=== PATIENT | male | born 1945 | race Caucasian/White ===

== ENCOUNTER 2016-07-05 05:53 | Inpatient (IN) | payer MEDICARE, OTHER ==
[2016-07-02 12:25] LABS: HEMOGLOBIN 15.5 g/dL (13.7-18.0)
[2016-07-02 12:29] LABS: ASPARTATE AMINO TRANSFERASE 37 U/L (15-37); BLOOD UREA NITROGEN 11 mg/dL (7-18)
[2016-07-03 12:06] LABS: THYROGLOBULIN AB <1.0 IU/mL (0.0-0.9); THYROGLOBULIN QUANT 20.9 ng/mL (1.4-29.2)
[~2016-07-05] VITALS: Ht 185.4 cm; Wt 112.0 kg
[~2016-07-05 05:53] MED LIST: ALLO100T30 PO; AMOX1TAB12 PO; AMOX1TAB64 PO; Aspirin PO; CHOL400C PO; LEVO50TA PO; LOSA25TA5 PO; METO-93 PO; SIMV10TA3 PO
[2016-07-05] MEDS ORDERED: LACTATED RINGERS 1,000 ML IV SCH ×2 (06:23→07:16)
[2016-07-05 06:26] VITALS: BP 122/80
[2016-07-05] MEDS ORDERED: LIDOCAINE 1%, 2ML SQ PRN (06:30)
[2016-07-05] MEDS ORDERED: MIDAZOLAM 1 MG/ML, 2ML ONE (06:54)
[2016-07-05] MEDS ORDERED: FENTANYL PF 250 MCG/5ML ONE (06:54)
[2016-07-05] MEDS ORDERED: ACETAMINOPHEN 500 MG TABLET PO ONE (07:00)
[2016-07-05] MEDS ORDERED: GABAPENTIN 300 MG CAPSULE PO SCH (07:00)
[2016-07-05] MEDS ORDERED: HYDROmorphone 1 MG/ML, 1ML IV PRN ×2 (07:00→08:00)
[2016-07-05] MEDS ORDERED: ONDANSETRON 2MG/ML, 2ML IVPush PRN ×2 (07:00→08:00)
[2016-07-05] MEDS ORDERED: OXYcodone/APAP 5/325MG TABLET PO PRN (07:00)
[2016-07-05] MEDS ORDERED: EPINEPHRINE 1 MG/ML, 1ML ONE (07:15)
[2016-07-05] MEDS ORDERED: SUCCINYLCHOLINE 20 MG/ML, 10ML ONE (07:15)
[2016-07-05] MEDS ORDERED: ONDANSETRON 2MG/ML, 2ML ONE (07:15)
[2016-07-05] MEDS ORDERED: CEFAZOLIN 1,000 MG ONE (07:15)
[2016-07-05] MEDS ORDERED: DEXAMETHASONE 4 MG/ML, 1ML ONE (07:15)
[2016-07-05] MEDS ORDERED: PROPOFOL 10 MG/ML, 20ML ONE (07:15)
[2016-07-05] MEDS ORDERED: ROCURONIUM 10 MG/ML ONE (07:15)
[2016-07-05] MEDS ORDERED: GLYCOPYRROLATE 0.2MG/1ML ONE (07:15)
[2016-07-05] MEDS ORDERED: hydrALAzine 20 MG/ML, 1ML IV PRN (08:00)
[2016-07-05] MEDS ORDERED: FENTANYL PF 100 MCG/2ML IV PRN (08:00)
[2016-07-05] MEDS ORDERED: ACETAMINOPHEN 325 MG TABLET PO PRN (08:00)
[2016-07-05] MEDS ORDERED: LABETALOL 5MG/ML, 20ML IV PRN (08:00)
[2016-07-05] MEDS ORDERED: METOCLOPRAMIDE 5 MG/ML, 2ML IV PRN (08:00)
[2016-07-05] MEDS ORDERED: OXYcodone 5 MG/5 ML ORAL.SOL UDC PO PRN (08:00)
[2016-07-05] MEDS: D5%-0.45NACL+KCL 20MEQ 1,000 ML IV SCH ×2 (12:03→20:41)
[2016-07-05] MEDS: LOSARTAN 50MG TABLET PO SCH ×2 (12:37→20:43)
[2016-07-05 14:00] VITALS: BP 123/64
[2016-07-05 15:59] VITALS: BP 164/97
[2016-07-05 20:02] VITALS: BP 126/66
[2016-07-05] MEDS: ALLOPURINOL 100 MG TABLET PO SCH (20:43)
[2016-07-05] MEDS: METOPROLOL SUCCINATE 50 MG TAB.ER.24H PO SCH (20:43)
[2016-07-05] MEDS ORDERED: SIMVASTATIN 10 MG TABLET PO SCH (21:00)
[2016-07-06 03:23] VITALS: BP 138/72
[2016-07-06] MEDS: D5%-0.45NACL+KCL 20MEQ 1,000 ML IV SCH ×2 (04:30→10:48)
[2016-07-06] MEDS ORDERED: LEVOTHYROXINE 125 MCG TABLET PO SCH (06:00)
[2016-07-06 06:57] VITALS: BP 121/69
[2016-07-06] MEDS: CALCIUM CARBONATE 500 MG TAB.CHEW PO SCH ×2 (08:10→10:46)
[2016-07-06] MEDS: LOSARTAN 50MG TABLET PO SCH (08:59)
[2016-07-06] MEDS: METOPROLOL SUCCINATE 50 MG TAB.ER.24H PO SCH (08:59)
[2016-07-06] MEDS: ALLOPURINOL 100 MG TABLET PO SCH (08:59)
[2016-07-06] MEDS ORDERED: CALC300T5 PO (12:53)
[2016-07-06 13:35] VITALS: BP 135/74
[2016-07-06] MEDS ORDERED: LEVO125T PO (15:53)
[2016-07-06] MEDS ORDERED: OXYC-302 PO (15:54)
== END 2016-07-06 16:13 | disposition home or self-care (01) | DRG 627 ==
LOC: OUT 05:53 → ORIP 06:50 → 4NOR 10:27 → DCLOUNGE 07-06 15:45
PROVIDERS: ADMIT Surgery; ATTEND Surgery
PROC: 4A11X4G Monitoring of Peripheral Nervous Electrical Activity, Intraoperative, External Approach (ICD-10-PCS; 2016-07-05)
PROC: 0GTK0ZZ Resection of Thyroid Gland, Open Approach (ICD-10-PCS; principal; 2016-07-05 07:30)
DX: E04.2 Nontoxic multinodular goiter (principal); I10 Essential (primary) hypertension; E78.00 Pure hypercholesterolemia, unspecified; Z90.49 Acquired absence of other specified parts of digestive tract; Z91.041 Radiographic dye allergy status; Z82.61 Family history of arthritis; Z82.49 Family history of ischemic heart disease and other diseases of the circulatory system
CPT/HCPCS: 36415; 80053; 82040; 82310; 84432; 85025; 86800; 88307; 88331; 88333; J0171; J0690; J1100; J2250; J2405; J2704; J3010; J3490; C1760; J0330; J3480; J7120

== ENCOUNTER 2019-05-02 12:57 | Inpatient (IN) | payer MEDICARE, OTHER ==
[~2019-05-02] VITALS: Ht 188 cm; Wt 105.9 kg
[~2019-05-02 12:57] MED LIST changes: +CALC300T5 PO; +LEVO125T PO; +LOSA25TA25 PO; -LOSA25TA5 PO; +OXYC-302 PO; +SIMV10TA18 PO; -SIMV10TA3 PO
--- NOTE | 2019-05-02 13:40 | NUR ---
PT HAS WORSENING COUGH, DIAPHORESIS AND LIGHTHEADED INCREASING OVER LAST 5 TO 7 DAYS
[2019-05-02] MEDS ORDERED: SODIUM CHLORIDE FLUSH 10ML SYR IVF ONE (14:00)
[2019-05-02] MEDS ORDERED: SODIUM CHLORIDE 0.9% 1,000ML IVBOLUS ONE ×2 (14:00→14:30)
[2019-05-02 14:20] LABS: INTERNATIONAL NORMALIZED RATIO 1.06 (0.93-1.1); PROTHROMBIN TIME 11.2 Seconds (9.6-11.5)
[2019-05-02 14:22] LABS: ANION GAP 8 mmol/L (5-15); CALCIUM 8.2 mg/dL (8.5-10.1); CHLORIDE 102 mmol/L (98-107); CREATININE 1.42 mg/dL (0.7-1.3)
[2019-05-02 14:23] LABS: ALANINE AMINOTRANSFERASE 72 U/L (12-78); ALBUMIN 2.8 g/dL (3.4-5.0)
[2019-05-02 14:25] LABS: ALKALINE PHOSPHATASE 77 U/L (45-117); BILIRUBIN,TOTAL 1.1 mg/dL (0.2-1.0); TOTAL PROTEIN 6.8 g/dL (6.4-8.2)
[2019-05-02] MEDS ORDERED: CEFTRIAXONE PMX 2GM/50ML 50 ML IV ONE (14:30)
--- NOTE | 2019-05-02 14:31 | NUR ---
MD AT BEDSIDE DISCUSSING RESULTS AND INTENTION TO ADMIT
[2019-05-02] MEDS ORDERED: CEFTRIAXONE PMX 2GM/50ML 50 ML ONE (14:50)
[2019-05-02 15:08] LABS: MD SCAN; MEAN CORPUSCULAR HEMOGLOBIN 33.5 pg (27.5-34.5); MEAN CORPUSCULAR HGB CONC 34.3 g/dL (33.2-36.2); MEAN CORPUSCULAR VOLUME 97.6 fL (81-97); MEAN PLATELET VOLUME 7.9 fL (7.4-10.4); PLATELET COUNT 120 x10^3/uL (130-400); RED BLOOD COUNT 3.47 x10^6/uL (4.38-5.82); RED CELL DISTRIBUTION WIDTH 13.3 % (9.4-14.8)
[2019-05-02 15:14] LABS: BASOPHILS # (AUTO) 0.01 x10^3/uL (0-0.1); BASOPHILS % (AUTO) 1 % (0-1); EOSINOPHILS % (AUTO) 0 % (1-7); LYMPHOCYTES # (AUTO) 0.42 x10^3/uL (1-3.4); LYMPHOCYTES % (AUTO) 31 % (22-44); MONOCYTES # (AUTO) 0.01 x10^3/uL (0.2-0.8); MONOCYTES % (AUTO) 0 % (2-9); NEUTROPHILS # (AUTO) 0.92 x10^3/uL (1.8-6.8); NEUTROPHILS % (AUTO) 68 % (42-75)
[2019-05-02] MEDS ORDERED: AZITHROMYCIN 500 MG in SODIUM CHLORIDE 0.9% 250 ML IV ONE (15:30)
[2019-05-02] MEDS ORDERED: LEVO175T2 PO (15:54)
--- NOTE | 2019-05-02 15:54 | NUR ---
IV BOLUSES AND ANTIBITIOTICS CONTINUE TO INFUSE NOTED ON JUN. CONTINUE TO MONITOR
--- NOTE | 2019-05-02 16:47 | NUR ---
PT'S SPOUSE APPROACHED THIS RN IN THE HALLWAY STATING, "MY IS GETTING DELIRIOUS." PT A&O X 4, GCS 15, PERRL. PT DOES STATE, "I'VE HAD A COUPLE OF ANIMALS IN HERE TALKING TO ME. A COUPLE OF CATS, A DOG." DR. CULP MADE AWARE. PT'S VSS, NO OTHER NEUROLOGIC DEFICITS APPRECIATED UPON EXAM.
--- NOTE | 2019-05-02 16:49 | NUR ---
HOSPITALIST AT BEDSIDE EXAMINING PT
[2019-05-02] MEDS ORDERED: BISACODYL 10 MG SUPP PR PRN (17:00)
[2019-05-02] MEDS ORDERED: morphine SULFATE 10 MG/ML, 1ML IVPush PRN (17:00)
[2019-05-02] MEDS ORDERED: PROMETHAZINE 25 MG/ML, 1ML IM PRN (17:00)
[2019-05-02] MEDS ORDERED: ONDANSETRON ODT 4 MG PO PRN (17:00)
[2019-05-02] MEDS ORDERED: ONDANSETRON 2MG/ML, 2ML IVPush PRN (17:00)
[2019-05-02] MEDS ORDERED: hydrALAzine 20 MG/ML, 1ML IVPush PRN (17:00)
[2019-05-02] MEDS ORDERED: POLYETHYLENE GLYCOL 17 GM PACKET PO PRN (17:00)
[2019-05-02] MEDS ORDERED: OXYcodone IR 5MG TABLET PO PRN (17:00)
[2019-05-02] MEDS ORDERED: DOCUSATE 100 MG CAPSULE PO PRN (17:00)
[2019-05-02 17:30] LABS: FREE T4 (FREE THYROXINE) 1.16 ng/dL (0.76-1.46)
--- NOTE | 2019-05-02 17:43 | NUR ---
BLADDER SCAN 471 ML. HOSPITALIST MADE AWARE. PT UP TO BED AND USED RESTROOM. PT NOW SITTING IN CHAIR EATING DINNER
[2019-05-02] MEDS ORDERED: ACETAMINOPHEN 325 MG TABLET ONE (18:22)
[2019-05-02] MEDS: ACETAMINOPHEN 325 MG TABLET PO PRN ×2 (18:26→21:42)
[2019-05-02] MEDS ORDERED: HEPARIN 5,000 UNITS/ML, 1ML ONE (18:30)
--- NOTE | 2019-05-02 18:30 | NUR ---
MEDICATED FOR FEVER AND BLANKETS AND JACKET REMOVED. CONTINUE TO MONITOR
[2019-05-02] MEDS: HEPARIN 5,000 UNITS/ML, 1ML SQ SCH (18:32)
[2019-05-02] MEDS: SODIUM CHLORIDE 0.9% 1,000 ML IV SCH (18:32)
--- NOTE | 2019-05-02 19:11 | NUR ---
REPORT FROM LIBIA GUERRERO. ASSUMING CARE OF PT AT THIS TIME
--- NOTE | 2019-05-02 20:06 | NUR ---
REPORT TO FLOOR RN PT READY FOR TRANSPORT
[2019-05-02 20:27] VITALS: BP 122/68
[2019-05-02] MEDS: GUAIFENESIN ER 600 MG TABLET PO SCH (21:42)
[2019-05-02] MEDS: SIMVASTATIN 10 MG TABLET PO SCH (21:42)
[2019-05-02] MEDS ORDERED: ALBUTEROL/IPRATROPIUM 2.5MG/0.5MG, 3 ML NPPB PRN (23:30)
[2019-05-03] MEDS: HEPARIN 5,000 UNITS/ML, 1ML SQ SCH ×3 (01:00→17:00)
[2019-05-03 01:41] VITALS: BP 117/66
[2019-05-03] MEDS: SODIUM CHLORIDE 0.9% 1,000 ML IV SCH (04:48)
[2019-05-03 05:20] LABS: CHLORIDE 106 mmol/L (98-107); MEAN CORPUSCULAR HEMOGLOBIN 33.5 pg (27.5-34.5); MEAN CORPUSCULAR VOLUME 98.6 fL (81-97); MEAN PLATELET VOLUME 7.9 fL (7.4-10.4); PLATELET COUNT 110 x10^3/uL (130-400); RED BLOOD COUNT 3.37 x10^6/uL (4.38-5.82); RED CELL DISTRIBUTION WIDTH 13.6 % (9.4-14.8)
[2019-05-03 05:27] LABS: ALANINE AMINOTRANSFERASE 84 U/L (12-78); ALBUMIN 2.5 g/dL (3.4-5.0); ALKALINE PHOSPHATASE 76 U/L (45-117); ANION GAP 5 mmol/L (5-15); BILIRUBIN,TOTAL 0.8 mg/dL (0.2-1.0); CALCIUM 7.6 mg/dL (8.5-10.1); CHOL/HDL RATIO 7.7; CHOLESTEROL, TOTAL 108 mg/dL (140-239); CREATININE 1.09 mg/dL (0.7-1.3); HDL CHOL % 13 % (26-37); HDL CHOLESTEROL (DIRECT) 14 mg/dL (40-60); LDL CHOLESTEROL,CALCULATED 69 mg/dL (54-169); LDL/HDL RATIO 4.9 (0.5-3.0); TOTAL PROTEIN 6.4 g/dL (6.4-8.2); TRIGLYCERIDES 126 mg/dL (50-200); VLDL CHOLESTEROL 25 mg/dL (0-25)
[2019-05-03 05:37] LABS: MD YES
[2019-05-03 05:45] LABS: <PLATELET ESTIMATE> DECREASED; <PLT MORPHOLOGY> NORMAL PLT MORPH; <RBC MORPHOLOGY> NORMAL; LYMPHS% (MANUAL) 42 % (22-44); MONOS#(MANUAL) 0.02 x10^3/uL (0.3-2.7); MONOS% (MANUAL) 2 % (2-9); SEG#(MANUAL) 0.67 x10^3/uL (1.8-6.8); SEGS% (MANUAL) 56 % (42-75)
[2019-05-03] MEDS: LEVOTHYROXINE 175 MCG TABLET PO SCH (06:12)
[2019-05-03 07:18] VITALS: BP 124/68
[2019-05-03] MEDS: ACETAMINOPHEN 325 MG TABLET PO PRN ×2 (07:27→15:54)
[2019-05-03] MEDS: CHOLECALCIFEROL 400 UNITS TABLET PO SCH (09:17)
[2019-05-03] MEDS: GUAIFENESIN ER 600 MG TABLET PO SCH ×2 (09:17→21:58)
[2019-05-03] MEDS: ALLOPURINOL 100 MG TABLET PO SCH (09:18)
[2019-05-03] MEDS: METOPROLOL SUCCINATE 50 MG TAB.ER.24H PO SCH (09:18)
[2019-05-03 13:40] VITALS: BP 152/75
[2019-05-03 13:56] LABS: MICROSCOPIC INDICATED
[2019-05-03] MEDS ORDERED: CEFTRIAXONE PMX 2GM/50ML 50 ML IV SCH (14:00)
[2019-05-03 14:04] LABS: CULTURE INDICATED? NO
[2019-05-03] MEDS: AZITHROMYCIN 500 MG in SODIUM CHLORIDE 0.9% 250 ML IV SCH (15:27)
[2019-05-03] MEDS ORDERED: NS + 20MEQ KCL 1,000 ML IV SCH (17:00)
[2019-05-03 18:36] VITALS: BP 117/63
[2019-05-03] MEDS: SIMVASTATIN 10 MG TABLET PO SCH (21:57)
[2019-05-04 00:35] VITALS: BP 144/72
[2019-05-04] MEDS: HEPARIN 5,000 UNITS/ML, 1ML SQ SCH ×3 (01:00→17:10)
[2019-05-04 01:31] LABS: PH, VENOUS 7.428 pH (7.320-7.420)
[2019-05-04 01:32] LABS: MEAN CORPUSCULAR HEMOGLOBIN 33.3 pg (27.5-34.5); MEAN CORPUSCULAR VOLUME 97.8 fL (81-97); MEAN PLATELET VOLUME 7.8 fL (7.4-10.4); PLATELET COUNT 118 x10^3/uL (130-400); RED BLOOD COUNT 3.22 x10^6/uL (4.38-5.82); RED CELL DISTRIBUTION WIDTH 13.9 % (9.4-14.8)
[2019-05-04 01:44] LABS: MD YES
[2019-05-04 01:45] LABS: ALANINE AMINOTRANSFERASE 142 U/L (12-78); ALBUMIN 2.2 g/dL (3.4-5.0); ANION GAP 5 mmol/L (5-15); CALCIUM 7.8 mg/dL (8.5-10.1); CHLORIDE 106 mmol/L (98-107); CREATININE 1.09 mg/dL (0.7-1.3)
[2019-05-04 01:47] LABS: ALKALINE PHOSPHATASE 98 U/L (45-117); BILIRUBIN,TOTAL 0.6 mg/dL (0.2-1.0); TOTAL PROTEIN 6.4 g/dL (6.4-8.2)
[2019-05-04 01:49] LABS: TROPONIN I 0.051 ng/mL (0.000-0.045)
[2019-05-04 01:52] LABS: BAND#(MANUAL) 0.02 x10^3/uL; BANDS%(MANUAL) 2 % (0-7); BASOS#(MANUAL) 0.01 x10^3/uL (0-0.1); BASOS% (MANUAL) 1 % (0-1); LYMPH#(MANUAL) 0.36 x10^3/uL (1-3.4); LYMPHS% (MANUAL) 36 % (22-44); REACTIVE LYMPHS # (MANUAL) 0.04 x10^3/uL (0-0); REACTIVE LYMPHS % (MANUAL) 4 % (0-0); SEG#(MANUAL) 0.57 x10^3/uL (1.8-6.8); SEGS% (MANUAL) 57 % (42-75)
[2019-05-04 01:53] LABS: <PLATELET ESTIMATE> DECREASED; <PLT MORPHOLOGY> NORMAL PLT MORPH; ANISOCYTOSIS 1+
[2019-05-04] MEDS ORDERED: FUROSEMIDE 40 MG/4 ML IV ONE (04:30)
[2019-05-04 06:21] VITALS: BP 117/60
[2019-05-04] MEDS: LEVOTHYROXINE 175 MCG TABLET PO SCH (06:25)
[2019-05-04] MEDS: GUAIFENESIN 200 MG TABLET PO SCH ×4 (08:41→21:38)
[2019-05-04] MEDS: CHOLECALCIFEROL 400 UNITS TABLET PO SCH (08:41)
[2019-05-04] MEDS: ALLOPURINOL 100 MG TABLET PO SCH (08:41)
[2019-05-04] MEDS: METOPROLOL SUCCINATE 50 MG TAB.ER.24H PO SCH (08:42)
[2019-05-04] MEDS: AMPICILLIN/SULBACTAM 3 GM in SODIUM CHLORIDE 0.9% 100 ML IV SCH ×3 (08:42→19:31)
[2019-05-04] MEDS: AZITHROMYCIN 500 MG in SODIUM CHLORIDE 0.9% 250 ML IV SCH (14:28)
[2019-05-04 14:50] LABS: TROPONIN I 0.022 ng/mL (0.000-0.045)
[2019-05-04 16:08] VITALS: BP 126/73
[2019-05-04 19:46] VITALS: BP 132/72
[2019-05-04] MEDS ORDERED: ACETAMINOPHEN 325 MG TABLET PO PRN (21:00)
[2019-05-04] MEDS: SIMVASTATIN 10 MG TABLET PO SCH (21:38)
[2019-05-04 22:16] LABS: RAPID INFLUENZA A Negative (Negative); RAPID INFLUENZA B Negative (Negative)
[2019-05-05] VITALS (7 sets, daily range): BP systolic 104–137; BP diastolic 69–83
[2019-05-05] MEDS: HEPARIN 5,000 UNITS/ML, 1ML SQ SCH ×2 (01:27→07:44)
[2019-05-05] MEDS: AMPICILLIN/SULBACTAM 3 GM in SODIUM CHLORIDE 0.9% 100 ML IV SCH ×2 (01:28→07:42)
[2019-05-05] MEDS: GUAIFENESIN 200 MG TABLET PO SCH ×4 (05:27→20:32)
[2019-05-05] MEDS: LEVOTHYROXINE 175 MCG TABLET PO SCH (05:27)
[2019-05-05 06:38] LABS: ALANINE AMINOTRANSFERASE 288 U/L (12-78); ALBUMIN 2.1 g/dL (3.4-5.0); ANION GAP 7 mmol/L (5-15); CALCIUM 7.9 mg/dL (8.5-10.1); CHLORIDE 105 mmol/L (98-107); CREATININE 0.92 mg/dL (0.7-1.3)
[2019-05-05 06:40] LABS: ALKALINE PHOSPHATASE 132 U/L (45-117); BILIRUBIN,TOTAL 0.7 mg/dL (0.2-1.0); TOTAL PROTEIN 6.3 g/dL (6.4-8.2)
[2019-05-05 06:44] LABS: MEAN CORPUSCULAR HEMOGLOBIN 33.5 pg (27.5-34.5); MEAN CORPUSCULAR VOLUME 98.7 fL (81-97); MEAN PLATELET VOLUME 8.2 fL (7.4-10.4); PLATELET COUNT 145 x10^3/uL (130-400); RED BLOOD COUNT 3.24 x10^6/uL (4.38-5.82); RED CELL DISTRIBUTION WIDTH 13.7 % (9.4-14.8)
[2019-05-05] MEDS: CHOLECALCIFEROL 400 UNITS TABLET PO SCH (07:42)
[2019-05-05] MEDS: ALLOPURINOL 100 MG TABLET PO SCH (07:42)
[2019-05-05] MEDS: METOPROLOL SUCCINATE 50 MG TAB.ER.24H PO SCH (07:42)
[2019-05-05 08:12] LABS: MD YES
[2019-05-05 08:19] LABS: BAND#(MANUAL) 0.05 x10^3/uL; BANDS%(MANUAL) 4 % (0-7); EOS#(MANUAL) 0.04 x10^3/uL (0.0-0.4); EOS% (MANUAL) 3 % (1-7); LYMPH#(MANUAL) 0.49 x10^3/uL (1-3.4); LYMPHS% (MANUAL) 41 % (22-44); MONOS#(MANUAL) 0.04 x10^3/uL (0.3-2.7); MONOS% (MANUAL) 3 % (2-9); NRBC % (MANUAL) 1 % (0-1); SEG#(MANUAL) 0.59 x10^3/uL (1.8-6.8); SEGS% (MANUAL) 49 % (42-75)
[2019-05-05 08:20] LABS: <PLATELET ESTIMATE> ADEQUATE; <PLT MORPHOLOGY> NORMAL PLT MORPH; <RBC MORPHOLOGY> NORMAL
[2019-05-05 09:25] LABS: TROPONIN I < 0.015 ng/mL (0.000-0.045)
[2019-05-05] MEDS ORDERED: DILTIAZEM 125 MG in SODIUM CHLORIDE 0.9% 100 ML IV PRN (10:00)
[2019-05-05] MEDS ORDERED: DILTIAZEM 5 MG/ML, 5ML ONE (10:11)
[2019-05-05] MEDS ORDERED: DILTIAZEM 5 MG/ML, 5ML IVPush ONE (10:30)
[2019-05-05] MEDS ORDERED: PIPERACILLIN/TAZO/PMX 3.375GM 50 ML IV SCH (10:30)
[2019-05-05] MEDS ORDERED: AZITHROMYCIN 500 MG in SODIUM CHLORIDE 0.9% 250 ML IV SCH ×2 (11:00→13:00)
[2019-05-05] MEDS ORDERED: HEPARIN 5,000 UNITS/ML, 1ML IV ONE (11:30)
[2019-05-05] MEDS ORDERED: DIGOXIN 0.25 MG/ML, 2ML IVPush ONE (12:30)
[2019-05-05] MEDS: HEPARIN 25,000 UNITS/250ML PMX 250 ML IV PRN (13:01)
[2019-05-05] MEDS ORDERED: IMMUNE GLOBULIN IV ONE (15:00)
[2019-05-05] MEDS ORDERED: HYDROCORTISONE 100 MG INJ. IVPush ONE (15:00)
[2019-05-05] MEDS: PIPERACILLIN/TAZO/PMX 4.5GM 100 ML IV SCH (16:50)
[2019-05-05] MEDS: METOPROLOL TARTRATE 25 MG TABLET PO SCH ×3 (17:32→21:00)
[2019-05-05] MEDS: HEPARIN 5,000 UNITS/ML, 1ML IV PRN (20:31)
[2019-05-06] MEDS: PIPERACILLIN/TAZO/PMX 4.5GM 100 ML IV SCH ×4 (01:10→18:42)
[2019-05-06 02:05] VITALS: BP 134/77
[2019-05-06] MEDS: HEPARIN 5,000 UNITS/ML, 1ML IV PRN ×4 (03:44→21:56)
[2019-05-06 05:26] VITALS: BP 156/81
[2019-05-06] MEDS: METOPROLOL TARTRATE 25 MG TABLET PO SCH ×4 (05:28→20:48)
[2019-05-06] MEDS: GUAIFENESIN 200 MG TABLET PO SCH ×4 (05:29→20:46)
[2019-05-06] MEDS: LEVOTHYROXINE 175 MCG TABLET PO SCH (05:29)
[2019-05-06] MEDS: HEPARIN 25,000 UNITS/250ML PMX 250 ML IV PRN ×2 (06:39→21:58)
[2019-05-06 07:46] VITALS: BP 128/80
[2019-05-06 08:03] LABS: ALANINE AMINOTRANSFERASE 409 U/L (12-78); ANION GAP 7 mmol/L (5-15); CALCIUM 8.1 mg/dL (8.5-10.1); CHLORIDE 105 mmol/L (98-107); CREATININE 1.03 mg/dL (0.7-1.3)
[2019-05-06 08:05] LABS: ALKALINE PHOSPHATASE 156 U/L (45-117); BILIRUBIN,TOTAL 0.6 mg/dL (0.2-1.0); TOTAL PROTEIN 7.1 g/dL (6.4-8.2)
[2019-05-06] MEDS: ALLOPURINOL 100 MG TABLET PO SCH (08:21)
[2019-05-06] MEDS: CHOLECALCIFEROL 400 UNITS TABLET PO SCH (08:21)
[2019-05-06 08:56] LABS: MEAN CORPUSCULAR HEMOGLOBIN 33.5 pg (27.5-34.5); MEAN CORPUSCULAR HGB CONC 33.4 g/dL (33.2-36.2); MEAN CORPUSCULAR VOLUME 100.6 fL (81-97); MEAN PLATELET VOLUME 8.7 fL (7.4-10.4); PLATELET COUNT 147 x10^3/uL (130-400); RED BLOOD COUNT 3.11 x10^6/uL (4.38-5.82); RED CELL DISTRIBUTION WIDTH 13.8 % (9.4-14.8)
[2019-05-06 09:09] LABS: MD YES
[2019-05-06 09:14] LABS: EOS#(MANUAL) 0.02 x10^3/uL (0.0-0.4); EOS% (MANUAL) 2 % (1-7); LYMPH#(MANUAL) 0.22 x10^3/uL (1-3.4); LYMPHS% (MANUAL) 24 % (22-44); MONOS#(MANUAL) 0.03 x10^3/uL (0.3-2.7); MONOS% (MANUAL) 3 % (2-9); SEG#(MANUAL) 0.64 x10^3/uL (1.8-6.8); SEGS% (MANUAL) 71 % (42-75)
[2019-05-06 09:15] LABS: <PLATELET ESTIMATE> ADEQUATE; <PLT MORPHOLOGY> NORMAL PLT MORPH
[2019-05-06] MEDS ORDERED: DILTIAZEM 125 MG in SODIUM CHLORIDE 0.9% 100 ML IV PRN (10:00)
[2019-05-06 12:46] VITALS: BP 131/76
[2019-05-06 20:14] VITALS: BP 123/70
[2019-05-07] VITALS (7 sets, daily range): BP systolic 111–157; BP diastolic 63–89
[2019-05-07] MEDS: PIPERACILLIN/TAZO/PMX 4.5GM 100 ML IV SCH ×4 (01:21→19:38)
[2019-05-07 04:28] LABS: MEAN CORPUSCULAR HEMOGLOBIN 33.3 pg (27.5-34.5); MEAN CORPUSCULAR HGB CONC 33.7 g/dL (33.2-36.2); MEAN CORPUSCULAR VOLUME 98.8 fL (81-97); MEAN PLATELET VOLUME 8.3 fL (7.4-10.4); PLATELET COUNT 196 x10^3/uL (130-400); RED BLOOD COUNT 3.22 x10^6/uL (4.38-5.82); RED CELL DISTRIBUTION WIDTH 13.7 % (9.4-14.8)
[2019-05-07 04:30] LABS: ALANINE AMINOTRANSFERASE 395 U/L (12-78); ALBUMIN 1.9 g/dL (3.4-5.0); ANION GAP 6 mmol/L (5-15); CALCIUM 7.9 mg/dL (8.5-10.1); CHLORIDE 106 mmol/L (98-107); CREATININE 0.96 mg/dL (0.7-1.3)
[2019-05-07 04:32] LABS: ALKALINE PHOSPHATASE 140 U/L (45-117); BILIRUBIN,TOTAL 0.6 mg/dL (0.2-1.0); TOTAL PROTEIN 6.6 g/dL (6.4-8.2)
[2019-05-07 05:07] LABS: MD YES
[2019-05-07 05:13] LABS: <PLATELET ESTIMATE> ADEQUATE; <PLT MORPHOLOGY> NORMAL PLT MORPH; <RBC MORPHOLOGY> NORMAL; EOS#(MANUAL) 0.01 x10^3/uL (0.0-0.4); EOS% (MANUAL) 1 % (1-7); LYMPH#(MANUAL) 0.69 x10^3/uL (1-3.4); LYMPHS% (MANUAL) 53 % (22-44); SEGS% (MANUAL) 46 % (42-75)
[2019-05-07] MEDS: HEPARIN 5,000 UNITS/ML, 1ML IV PRN ×2 (05:17→17:41)
[2019-05-07] MEDS: GUAIFENESIN 200 MG TABLET PO SCH ×4 (05:51→19:50)
[2019-05-07] MEDS: LEVOTHYROXINE 175 MCG TABLET PO SCH (05:51)
[2019-05-07] MEDS: METOPROLOL TARTRATE 25 MG TABLET PO SCH ×4 (05:52→19:51)
[2019-05-07] MEDS: ALLOPURINOL 100 MG TABLET PO SCH (08:00)
[2019-05-07] MEDS: CHOLECALCIFEROL 400 UNITS TABLET PO SCH (08:00)
[2019-05-07] MEDS ORDERED: FENTANYL PF 100 MCG/2ML ONE (14:58)
[2019-05-07] MEDS ORDERED: NALOXONE 1 MG/ML, 2ML ONE (14:58)
[2019-05-07] MEDS ORDERED: MIDAZOLAM 1 MG/ML, 5ML ONE ×2 (14:58)
[2019-05-07] MEDS ORDERED: FLUMAZENIL 0.1 MG/1 ML, 5ML ONE (14:58)
[2019-05-07 16:29] LABS: SALICYLATE LEVEL < 1.7 mg/dL (2.8-20.0)
[2019-05-07] MEDS: HEPARIN 25,000 UNITS/250ML PMX 250 ML IV PRN (19:43)
[2019-05-08] MEDS: HEPARIN 5,000 UNITS/ML, 1ML IV PRN ×2 (00:09→06:29)
[2019-05-08] MEDS: PIPERACILLIN/TAZO/PMX 4.5GM 100 ML IV SCH ×4 (01:22→20:39)
[2019-05-08 02:17] VITALS: BP 148/73
[2019-05-08 05:47] VITALS: BP 140/73
[2019-05-08] MEDS: GUAIFENESIN 200 MG TABLET PO SCH ×4 (05:49→20:40)
[2019-05-08] MEDS: LEVOTHYROXINE 175 MCG TABLET PO SCH (05:50)
[2019-05-08] MEDS: METOPROLOL TARTRATE 25 MG TABLET PO SCH (05:50)
[2019-05-08 06:17] LABS: MEAN CORPUSCULAR HEMOGLOBIN 33.1 pg (27.5-34.5); MEAN CORPUSCULAR HGB CONC 33.9 g/dL (33.2-36.2); MEAN CORPUSCULAR VOLUME 97.6 fL (81-97); MEAN PLATELET VOLUME 7.6 fL (7.4-10.4); PLATELET COUNT 182 x10^3/uL (130-400); RED CELL DISTRIBUTION WIDTH 13.7 % (9.4-14.8)
[2019-05-08 06:20] LABS: MD YES
[2019-05-08 06:23] LABS: ALANINE AMINOTRANSFERASE 256 U/L (12-78); ANION GAP 7 mmol/L (5-15); CALCIUM 7.6 mg/dL (8.5-10.1); CHLORIDE 105 mmol/L (98-107); CREATININE 0.93 mg/dL (0.7-1.3)
[2019-05-08 06:27] LABS: ALKALINE PHOSPHATASE 134 U/L (45-117); BAND#(MANUAL) 0.03 x10^3/uL; BANDS%(MANUAL) 3 % (0-7); BILIRUBIN,TOTAL 0.6 mg/dL (0.2-1.0); EOS#(MANUAL) 0.01 x10^3/uL (0.0-0.4); EOS% (MANUAL) 1 % (1-7); LYMPH#(MANUAL) 0.58 x10^3/uL (1-3.4); LYMPHS% (MANUAL) 53 % (22-44); MONOS#(MANUAL) 0.02 x10^3/uL (0.3-2.7); MONOS% (MANUAL) 2 % (2-9); SEG#(MANUAL) 0.45 x10^3/uL (1.8-6.8); SEGS% (MANUAL) 41 % (42-75); TOTAL PROTEIN 6.5 g/dL (6.4-8.2)
[2019-05-08 06:28] LABS: <PLATELET ESTIMATE> ADEQUATE; <PLT MORPHOLOGY> NORMAL PLT MORPH; <RBC MORPHOLOGY> NORMAL
[2019-05-08 07:28] VITALS: BP 157/88
[2019-05-08] MEDS: HEPARIN 25,000 UNITS/250ML PMX 250 ML IV PRN (09:33)
[2019-05-08] MEDS: CHOLECALCIFEROL 400 UNITS TABLET PO SCH (09:35)
[2019-05-08] MEDS: ALLOPURINOL 100 MG TABLET PO SCH (09:35)
[2019-05-08] MEDS: METOPROLOL SUCCINATE 25 MG TAB.ER.24H PO SCH ×2 (10:40→20:39)
[2019-05-08 12:58] VITALS: BP 150/90
[2019-05-08] MEDS: ENOXAPARIN 100 MG/ML SQ SCH (14:52)
[2019-05-08 19:42] VITALS: BP 135/64
[2019-05-09] MEDS: PIPERACILLIN/TAZO/PMX 4.5GM 100 ML IV SCH ×4 (03:16→21:05)
[2019-05-09 03:19] VITALS: BP 133/75
[2019-05-09] MEDS: ENOXAPARIN 100 MG/ML SQ SCH ×2 (03:19→16:37)
[2019-05-09] MEDS: GUAIFENESIN 200 MG TABLET PO SCH ×4 (04:35→21:05)
[2019-05-09 04:57] LABS: ANION GAP 5 mmol/L (5-15); CALCIUM 7.6 mg/dL (8.5-10.1); CHLORIDE 104 mmol/L (98-107)
[2019-05-09 05:02] LABS: MEAN CORPUSCULAR HEMOGLOBIN 33.3 pg (27.5-34.5); MEAN CORPUSCULAR HGB CONC 33.9 g/dL (33.2-36.2); MEAN CORPUSCULAR VOLUME 98.4 fL (81-97); MEAN PLATELET VOLUME 7.6 fL (7.4-10.4); PLATELET COUNT 174 x10^3/uL (130-400); RED BLOOD COUNT 2.95 x10^6/uL (4.38-5.82); RED CELL DISTRIBUTION WIDTH 13.6 % (9.4-14.8)
[2019-05-09 05:04] LABS: ALANINE AMINOTRANSFERASE 181 U/L (12-78); ALKALINE PHOSPHATASE 115 U/L (45-117); BILIRUBIN,TOTAL 0.7 mg/dL (0.2-1.0); CREATININE 0.92 mg/dL (0.7-1.3); TOTAL PROTEIN 6.1 g/dL (6.4-8.2)
[2019-05-09] MEDS: LEVOTHYROXINE 175 MCG TABLET PO SCH (06:19)
[2019-05-09 06:49] LABS: MD YES
[2019-05-09 07:00] LABS: LYMPH#(MANUAL) 0.32 x10^3/uL (1-3.4); LYMPHS% (MANUAL) 36 % (22-44); SEG#(MANUAL) 0.58 x10^3/uL (1.8-6.8); SEGS% (MANUAL) 64 % (42-75)
[2019-05-09 07:01] LABS: <PLATELET ESTIMATE> ADEQUATE; <PLT MORPHOLOGY> NORMAL PLT MORPH; <RBC MORPHOLOGY> NORMAL
[2019-05-09 10:02] VITALS: BP 125/73
[2019-05-09] MEDS: METOPROLOL SUCCINATE 25 MG TAB.ER.24H PO SCH ×2 (10:06→21:05)
[2019-05-09] MEDS: ALLOPURINOL 100 MG TABLET PO SCH (10:06)
[2019-05-09] MEDS: CHOLECALCIFEROL 400 UNITS TABLET PO SCH (10:06)
[2019-05-09] MEDS ORDERED: FAMOTIDINE 20 MG/2 ML ONE (13:52)
[2019-05-09] MEDS ORDERED: DIPHENHYDRAMINE 50 MG/ML, 1ML ONE (13:53)
[2019-05-09 13:59] LABS: CLOSTRIDIUM DIFFICILE ANTIGEN NEGATIVE; CLOSTRIDIUM DIFFICILE TOXIN NEGATIVE (Negative)
[2019-05-09] MEDS ORDERED: DIPHENHYDRAMINE 50 MG/ML, 1ML IVPush ONE (14:00)
[2019-05-09] MEDS ORDERED: FAMOTIDINE 20 MG/2 ML IVPush ONE (14:00)
[2019-05-09] MEDS ORDERED: methylPREDNISolone SOD SUCC 125 MG/2 ML IVPush SCH (14:00)
[2019-05-09 14:06] VITALS: BP 141/69
[2019-05-09] MEDS ORDERED: OMNIPAQUE 350 MG/ML, 100ML BOTTLE ONE (14:49)
[2019-05-09 18:48] VITALS: BP 132/76
[2019-05-10] MEDS: ENOXAPARIN 100 MG/ML SQ SCH ×2 (03:00→15:54)
[2019-05-10] MEDS: PIPERACILLIN/TAZO/PMX 4.5GM 100 ML IV SCH (03:42)
[2019-05-10 03:50] VITALS: BP 146/84
[2019-05-10 04:35] LABS: MEAN CORPUSCULAR HEMOGLOBIN 33.2 pg (27.5-34.5); MEAN CORPUSCULAR HGB CONC 33.7 g/dL (33.2-36.2); MEAN CORPUSCULAR VOLUME 98.7 fL (81-97); MEAN PLATELET VOLUME 7.5 fL (7.4-10.4); PLATELET COUNT 214 x10^3/uL (130-400); RED CELL DISTRIBUTION WIDTH 13.3 % (9.4-14.8)
[2019-05-10 04:44] LABS: ANION GAP 6 mmol/L (5-15); CALCIUM 8.1 mg/dL (8.5-10.1); CHLORIDE 109 mmol/L (98-107)
[2019-05-10 04:48] LABS: ALANINE AMINOTRANSFERASE 141 U/L (12-78); ALKALINE PHOSPHATASE 105 U/L (45-117); BILIRUBIN,TOTAL 0.5 mg/dL (0.2-1.0); CREATININE 0.83 mg/dL (0.7-1.3); TOTAL PROTEIN 6.5 g/dL (6.4-8.2)
[2019-05-10] MEDS: GUAIFENESIN 200 MG TABLET PO SCH ×4 (05:30→21:05)
[2019-05-10] MEDS: LEVOTHYROXINE 175 MCG TABLET PO SCH (05:30)
[2019-05-10 05:53] LABS: MD YES
[2019-05-10 05:57] LABS: LYMPH#(MANUAL) 0.38 x10^3/uL (1-3.4); LYMPHS% (MANUAL) 38 % (22-44); MONOS#(MANUAL) 0.04 x10^3/uL (0.3-2.7); MONOS% (MANUAL) 4 % (2-9); SEG#(MANUAL) 0.58 x10^3/uL (1.8-6.8); SEGS% (MANUAL) 58 % (42-75)
[2019-05-10 05:58] LABS: <PLATELET ESTIMATE> ADEQUATE; <PLT MORPHOLOGY> NORMAL PLT MORPH; <RBC MORPHOLOGY> NORMAL
[2019-05-10 06:35] VITALS: BP 126/86
[2019-05-10] MEDS: CHOLECALCIFEROL 400 UNITS TABLET PO SCH (08:17)
[2019-05-10] MEDS: METOPROLOL SUCCINATE 25 MG TAB.ER.24H PO SCH ×2 (08:17→21:03)
[2019-05-10] MEDS: ALLOPURINOL 100 MG TABLET PO SCH (08:17)
[2019-05-10] MEDS: DOXYCYCLINE 100MG CAP PO SCH ×2 (08:29→21:03)
[2019-05-10] MEDS: LEVOFLOXACIN 750 MG TABLET PO SCH (08:31)
[2019-05-10 12:08] VITALS: BP 127/79
[2019-05-10] MEDS ORDERED: FENTANYL PF 100 MCG/2ML ONE (13:11)
[2019-05-10] MEDS ORDERED: NALOXONE 1 MG/ML, 2ML ONE (13:11)
[2019-05-10] MEDS ORDERED: FLUMAZENIL 0.1 MG/1 ML, 5ML ONE (13:11)
[2019-05-10] MEDS ORDERED: MIDAZOLAM 1 MG/ML, 5ML ONE (13:11)
[2019-05-10 14:12] VITALS: BP 129/78
[2019-05-10 18:44] VITALS: BP 123/71
[2019-05-11 02:04] VITALS: BP 147/75
[2019-05-11] MEDS: ENOXAPARIN 100 MG/ML SQ SCH ×2 (03:36→14:55)
[2019-05-11] MEDS: LEVOTHYROXINE 175 MCG TABLET PO SCH (05:57)
[2019-05-11] MEDS: GUAIFENESIN 200 MG TABLET PO SCH ×3 (05:59→14:55)
[2019-05-11 06:47] VITALS: BP 145/78
[2019-05-11] MEDS: DOXYCYCLINE 100MG CAP PO SCH (08:37)
[2019-05-11] MEDS: ALLOPURINOL 100 MG TABLET PO SCH (08:37)
[2019-05-11] MEDS: CHOLECALCIFEROL 400 UNITS TABLET PO SCH (08:38)
[2019-05-11] MEDS: METOPROLOL SUCCINATE 25 MG TAB.ER.24H PO SCH (08:38)
[2019-05-11] MEDS: LEVOFLOXACIN 750 MG TABLET PO SCH (08:38)
[2019-05-11 12:32] VITALS: BP 147/72
[2019-05-11] MEDS ORDERED: LEVO750T26 PO (16:07)
[2019-05-11] MEDS ORDERED: DOXY100C2 PO (16:07)
[2019-05-11] MEDS ORDERED: APIX5TAB PO (17:53)
== END 2019-05-11 18:23 | disposition home or self-care (01) | DRG 853 ==
LOC: ED 14:43 → EDIP 14:44 → 3N 20:21 → 5SO 05-05 09:57 → 4NW 05-08 12:07
PROVIDERS: ADMIT Internal Medicine; ATTEND Hospitalist
PROC: 07B53ZX Excision of Right Axillary Lymphatic, Percutaneous Approach, Diagnostic (ICD-10-PCS; 2019-05-07)
PROC: 07DR3ZX Extraction of Iliac Bone Marrow, Percutaneous Approach, Diagnostic (ICD-10-PCS; principal; 2019-05-10)
DX: A41.9 Sepsis, unspecified organism (principal); J96.01 Acute respiratory failure with hypoxia; N17.0 Acute kidney failure with tubular necrosis; J18.9 Pneumonia, unspecified organism; D68.69 Other thrombophilia; D61.818 Other pancytopenia; J81.1 Chronic pulmonary edema; C83.04 Small cell B-cell lymphoma, lymph nodes of axilla and upper limb; D63.8 Anemia in other chronic diseases classified elsewhere; E11.9 Type 2 diabetes mellitus without complications; E78.00 Pure hypercholesterolemia, unspecified; E78.5 Hyperlipidemia, unspecified; E86.0 Dehydration; I10 Essential (primary) hypertension; I48.0 Paroxysmal atrial fibrillation; K21.9 Gastro-esophageal reflux disease without esophagitis; K76.0 Fatty (change of) liver, not elsewhere classified; R50.81 Fever presenting with conditions classified elsewhere; M10.9 Gout, unspecified; Z74.01 Bed confinement status; Z79.899 Other long term (current) drug therapy; Z82.0 Family history of epilepsy and other diseases of the nervous system; Z22.322 Carrier or suspected carrier of Methicillin resistant Staphylococcus aureus; Z72.0 Tobacco use
CPT/HCPCS: 36415; 36600; 38222; 71045; 71250; 71260; 74177; 76700; 76942; 77012; 80053; 80061; 80074; 80162; 80307; 81001; 82803; 82962; 83036; 83605; 83615; 83735; 83880; 84100; 84145; 84439; 84443; 84484; 84550; 85025; 85060; 85097; 85520; 85610; 85730; 87040; 87070; 87077; 87081; 87186; 87205; 87324; 87400; 88184; 88185; 88237; 88264; 88280; 88305; 88311; 88341; 88342; 88360; 93005; 93306; 94640; 96361; 96365; 96375; 99156; 99157; G0378; J0295; J0456; J0696; J1561; J1644; J1650; J1940; J2250; J2543; J3010; J3480; J7620; Q9967; J1160; J1200; J1720; J2310; J2930; J3490; J7030; J7050

== ENCOUNTER → 2019-07-27 | Outpatient (CLI) | payer MEDICARE, OTHER ==
[~2019-07-27] MED LIST changes: +APIX5TAB PO; +DOXY100C2 PO; +LEVO175T2 PO; +LEVO750T26 PO; +OMNIPAQUE 350 MG/ML, 100ML BOTTLE ONE
== END | disposition home or self-care (01) ==
LOC: CFH 07-23 13:49 → RAD 11:45
PROVIDERS: ATTEND Internal Medicine Hematology & Oncology
DX: C83.08 Small cell B-cell lymphoma, lymph nodes of multiple sites (principal); R59.1 Generalized enlarged lymph nodes
CPT/HCPCS: 70491; Q9967

== ENCOUNTER 2019-10-18 13:35 | Outpatient (CLI) | payer MEDICARE, OTHER ==
[~2019-10-18 13:35] MED LIST changes: -OMNIPAQUE 350 MG/ML, 100ML BOTTLE ONE
== END 2019-10-18 23:59 | disposition home or self-care (01) ==
LOC: CFH 13:35
PROVIDERS: ATTEND Internal Medicine Hematology & Oncology
DX: C91.10 Chronic lymphocytic leukemia of B-cell type not having achieved remission (principal); R59.0 Localized enlarged lymph nodes; J98.4 Other disorders of lung; I25.10 Atherosclerotic heart disease of native coronary artery without angina pectoris; M47.819 Spondylosis without myelopathy or radiculopathy, site unspecified
CPT/HCPCS: 71250

== ENCOUNTER → 2019-12-05 | Outpatient (CLI) | payer MEDICARE, OTHER | END | disposition home or self-care (01) | LOC: PETCFH 09:16 | PROVIDERS: ATTEND Internal Medicine Hematology & Oncology | DX: C91.10 Chronic lymphocytic leukemia of B-cell type not having achieved remission (principal); R59.0 Localized enlarged lymph nodes | CPT/HCPCS: 78815; A9552 ==